=== PATIENT | female | born 1975 | race Caucasian/White ===

== ENCOUNTER 2020-07-03 14:34 | Outpatient (CLI) | payer OTHER | END 2020-07-03 14:53 | disposition home or self-care (01) | LOC: SONOGRAMA 14:34 | PROVIDERS: ATTEND Physical Medicine & Rehabilitation | DX: M70.31 Other bursitis of elbow, right elbow (principal) ==

== ENCOUNTER 2023-05-08 05:30 | Day surgery (SDC) | payer OTHER ==
[~2023-05-08] VITALS: Ht 152.4 cm; Wt 52.2 kg
[2023-05-08] MEDS ORDERED: CLINDAMYCIN PHOSPHATE 150 MG/ML (900mg) ONE (06:26)
[2023-05-08] MEDS ORDERED: POVIDONE-IODINE 118 ML BOTT TOP ONE ×3 (06:53→09:15)
[2023-05-08] MEDS ORDERED: POVIDONE-IODINE SCRUB 118 ML BOTT TOP ONE ×2 (06:53→09:15)
[2023-05-08] MEDS ORDERED: EPINEPHRINE HCL/PF 1 MG/ML AMPUL ONE ×2 (07:20→08:34)
[2023-05-08] MEDS ORDERED: GENTAMICIN SULFATE 40 MG/ML VIAL ONE (08:45)
[2023-05-08] MEDS ORDERED: CEFAZOLIN SODIUM 1,000 MG VIAL ONE (08:45)
[2023-05-08] MEDS ORDERED: CEFAZOLIN SODIUM 1,000 MG VIAL IJ ONE (09:15)
[2023-05-08] MEDS ORDERED: CLINDAMYCIN PHOSPHATE 150 MG/ML (900mg) IV ONE (09:15)
[2023-05-08] MEDS ORDERED: GENTAMICIN SULFATE 40 MG/ML VIAL IR ONE (09:15)
[2023-05-08] MEDS ORDERED: ONDANSETRON HCL 2 MG/ML VIAL IV PRN (12:45)
[2023-05-08] MEDS ORDERED: MORPHINE SULFATE 4 MG/ML VIAL IV PRN (12:45)
[2023-05-12] MEDS ORDERED: EPINEPHRINE HCL/PF 1 MG/ML AMPUL IR ONE (08:45)
== END 2023-05-08 15:20 | disposition home or self-care (01) ==
LOC: CIR.AMB 05:30
PROVIDERS: ATTEND Plastic Surgery
DX: N64.81 Ptosis of breast (principal); M62.08 Separation of muscle (nontraumatic), other site